=== PATIENT | female | born 1970 | race Caucasian/White ===

== ENCOUNTER 2017-12-12 10:31 | Outpatient (REF) | payer OTHER, SELFPAY ==
--- NOTE | 2017-12-12 09:15 | PAPFT_PTH ---
PATIENT: Yasemin Doherty LOC: [facility] U#:[id number] AGE/SX: 47/F ROOM: RE12/12/[address]: Jennie Tijerina NP : 1970 BED: DIS: 12/12/2017 SPEC #: [id number] RECD: 12/12/17 13:12 STATUS: KELLEY RESyeda #: [id number] NIGEL: 12/12/17 09:[address]: Jennie Tijerina NP DEPT: [facility] Cytology RECD BY: Leeanne Murillo ENTERED: 12/12/17 13:12 SP TYPE: PAPFT OTHR DR: Rosina Madera DNP Tissues: 1 - CX/ENDOCX FOR PAP SMEARS Procedures: PAP THIN PREP/[facility] Screening HPV DNA PROBE Comments: [id number]
== END 2017-12-12 10:51 ==
LOC: LBN 10:31
PROVIDERS: PCP Nurse Practitioner Gerontology; Visit Provider Nurse Practitioner Women's Health
DX: Z12.4 Encounter for screening for malignant neoplasm of cervix (principal); Z11.51 Encounter for screening for human papillomavirus (HPV)
CPT/HCPCS: 88142; 87624

== ENCOUNTER 2018-01-15 00:41 | Outpatient (CLI) | payer OTHER, SELFPAY ==
--- NOTE | 2018-01-15 15:21 | DI.MAMMO_ITS ---
SYMPTOMS/DIAGNOSIS: SCREENING, BASELINE, Z12.31 MAMMOGRAM: Mammograms were interpreted according to the usual protocol including computer analysis with CAD system, tomosynthesis and C view imaging. The breasts are heterogeneously dense. No dominant mass or clumped microcalcification is identified in either breast. Today's examination is a baseline examination. CONCLUSION: No specific evidence of malignancy at this time. Routine screening examinations are suggested at yearly intervals in this age group according to the ACS/ACR guidelines. Category 1. Breast density Category C. MQSA ASSESSMENT OF FINDINGS: Negative. Category 1. Patient will receive a letter notifying them of these results. Bi-RADS category C. The breasts are heterogeneously dense, which may obscure small masses.
== END 2018-01-15 01:01 ==
PROVIDERS: PCP Nurse Practitioner Gerontology; Visit Provider Nurse Practitioner Women's Health
DX: Z12.31 Encounter for screening mammogram for malignant neoplasm of breast (principal)
CPT/HCPCS: 77063; 77067

== ENCOUNTER 2018-04-18 15:26 | Outpatient (REF) | payer OTHER, SELFPAY ==
--- NOTE | 2018-04-18 13:40 | CER_PTH ---
PATIENT: Yasemin Doherty LOC: N U#:[id number] AGE/SX: 48/F ROOM: RE04/18/[address]: Maricarmen Bliss MD : 1970 BED: DIS: 04/18/2018 SPEC #: [id number] RECD: 04/18/18 15:34 STATUS: KELLEY REQ #: [id number] NIGEL: 04/18/18 13:[address]: Maricarmen Bliss DEPT: Surgical Specimen RECD BY: Leeanne Murillo ENTERED: 04/18/18 15:35 SP TYPE: CER OTHR DR: Rosina Madera DNP Tissues: 1 - CERVICAL LEEP/LOOP Procedures: GROSS AND MICRO LEVEL 5 Comments: [id number]
== END 2018-04-18 15:46 ==
LOC: LBN 15:26
PROVIDERS: PCP Nurse Practitioner Gerontology; Visit Provider Obstetrics & Gynecology
DX: N72 Inflammatory disease of cervix uteri (principal); R87.810 Cervical high risk human papillomavirus (HPV) DNA test positive
CPT/HCPCS: 88307

== ENCOUNTER 2018-08-19 09:10 | Day surgery (SDC) | payer OTHER, SELFPAY ==
--- NOTE | 2018-08-19 06:41 | W.COLOREPORT ---
Date of service: 08/19/18 Time of Service: 10:24 Colonoscopy Report Date of procedure: 08/19/18 Pre-op diagnosis general: Colon Cancer Screening Post-op diagnosis procedure note: other (Internal hemorrhoids) Procedure: Colonoscopy Surgeon: Sherine Rosado Anesthesia proc note operative: other (General/ ASA 2/ Saba Sharma, FLORES) Estimated blood loss (mL): 3 Pathology: none sent Complications: None Indications: Mrs. Doherty is a pleasant 48 year old female who was seen in the office for a screening colonoscopy. Risks, benefits and complications have been reviewed. Complications include but are not limited to bleeding, pain, perforation, missed small lesion/polyp, sore throat, aspiration and adverse reaction to the medications. Questions were entertained and answered to their satisfaction and they wished to proceed. No guarantees were given or implied. Prep: Miralax/Dulcolax Procedure Start Time: 10:24 Procedure End Time: 10:42 Retraction Time: 9 minutes Findings: Internal hemorrhoids and a very tortuous colon Procedure Description: After informed consent was obtained the patient was taken to the procedure room and placed in a left decubitous position. Monitors were applied and a time out was done. The patients name, date of , procedure, allergies to medications and metal in their body was reviewed. The patient was then sedated. Once sedated and comfortable a rectal exam was done. External exam was normal. Internal exam revealed a normal sphincter tone and no palpable masses. The scope was then introduced and retro-flexed. Grade 1 internal hemorrhoids were identified. The scope was then advanced to the cecum with difficulty due to a tortuous colon. The TI and appendiceal orifice were identified. The prep was adequate. The scope was then slowly retracted over 9 minutes back into the rectum. There were no polyps and no diverticulosis. The scope was removed and the patient was woken up and taken back to Same day surgery in stable condition. The patient tolerated the procedure well and there were no immediate complications. Follow up: The patient should follow up in 10 years unless they develop changes in bowel habits or other new gastrointestinal complaints.
--- NOTE | 2018-08-19 06:43 | W.PM.DSUDISC ---
Discharge Plan Disposition Patient Disposition: HOME Condition: Good Discharge Details Reason For Visit: Colon Cancer Screening Attending Provider: Sherine Rosado Primary Care Provider: Roegr Caba Home Meds and New Rx's Prescriptions: Continued multivitamin [Daily Vitamin] 1 EACH tablet 1 ea PO DAILY RF: 0 omega-3 fatty acids 1,000 mg Capsule 1,000 mg PO DAILY RF: 0 acetaminophen 500 mg Tablet 500 mg PO PRN PRNRF: 0 Discontinued polyethylene glycol 3350 17 gram/dose powder 238 g PO ONCE Qty: 238 RF: 0 bisacodyl [Dulcolax (bisacodyl)] 5 mg tablet,delayed release (DR/EC) 5 mg PO ONCE Qty: 4 RF: 0 Discharge Instructions Instructions: Colonoscopy (DC), Hemorrhoids (DC) Additional Instructions: Findings: internal hemorrhoids Follow up: 10 years Please call if you develop: fevers >101.5 Nausea or Vomiting Abdominal pain that is not transient DAY SURGERY UNIT POST COLONOSCOPY INSTRUCTIONS 1. Because there will be medication in your system for the next 24 hours, you may feel a little sleepy. Your coordination will be affected. Therefore: a. Do not drive or operate dangerous equipment for 24 hours. b. Do not drink alcohol beverages for 24 hours (not even beer). c. Plan to go home and rest for the day. 2. Generally there are no restrictions on your activity after a day or so has gone by, but you may feel a bit fatigued for a few days. 3 After you arrive home you may have a light meal and return to a normal diet as you can tolerate it without feeling sick to your stomach. 4. After surgery, you may feel pain or discomfort. This should be only transient, but if it persists please contact your doctor. 5. If there are any questions regarding the findings of your procedure, please feel free to contact your doctor. 6. If you are unable to contact your doctor with a problem, contact the hospital at [phone]. 7. Continue all your regular medications unless directed otherwise. I understand the above instructions and have no questions. Signature of Patient or Responsible Adult Escort Date/Time Name of Responsible Adult Escort Signature of Nurse Date/Time Activity:: Activity as Tolerated Diet:: As Tolerated Discharge Orders Discharge Orders: Discharge Order (Routine); Ordered 08/19/18 Ordered By: Sherine Rosado DS: Diagnosis Discharge Diagnosis (1) S/P colonoscopy: Status: Acute (2) Internal hemorrhoids: Status: Acute
[2018-08-19 09:32] VITALS: BP 109/67; PULSE 53; RESP 16; TEMP 36.8; O2SAT 99
[2018-08-19] MEDS: Lactated Ringers 1,000 ML 80 ML IV (09:45)
[2018-08-19 11:34] VITALS: BP 91/55; PULSE 49; RESP 19; TEMP 36.6; O2SAT 96
== END 2018-08-19 11:35 | disposition home or self-care (01) ==
LOC: SUR 09:10
PROVIDERS: PCP Family Medicine; Visit Provider Surgery
PROC: 0DJD8ZZ Inspection of Lower Intestinal Tract, Via Natural or Artificial Opening Endoscopic (ICD-10-PCS; CPT 45378; principal; 2018-08-19 10:00)
DX: Z12.11 Encounter for screening for malignant neoplasm of colon (principal); K63.89 Other specified diseases of intestine; K64.0 First degree hemorrhoids
CPT/HCPCS: 45378

== ENCOUNTER 2019-02-09 11:50 | Outpatient (REF) | payer OTHER, SELFPAY ==
--- NOTE | 2019-02-09 10:20 | PAPFT_PTH ---
PATIENT: Yasemin Doherty LOC: [facility] U#:[id number] AGE/SX: 48/F ROOM: RE02/09/[address]: Jennie Tijerina NP : 1970 BED: DIS: 02/09/2019 SPEC #: [id number] RECD: 02/09/19 12:49 STATUS: KELLEY REQ #: [id number] NIGEL: 02/09/19 10:[address]: Jennie Tijerina NP DEPT: [facility] Cytology RECD BY: Leeanne Murillo ENTERED: 02/09/19 12:49 SP TYPE: PAPFT OTHR DR: Roger Caba MD Tissues: 1 - CX/ENDOCX FOR PAP SMEARS Procedures: PAP THIN PREP/[facility] Screening HPV DNA PROBE Comments: [id number]
== END 2019-02-09 12:10 ==
LOC: LBN 11:50
PROVIDERS: PCP Family Medicine; Visit Provider Nurse Practitioner Women's Health
DX: Z12.4 Encounter for screening for malignant neoplasm of cervix (principal); Z11.51 Encounter for screening for human papillomavirus (HPV)
CPT/HCPCS: 88142; 87624

== ENCOUNTER 2020-05-24 10:11 | Outpatient (REF) | payer OTHER, SELFPAY ==
--- NOTE | 2020-05-24 09:20 | PAPFT_PTH ---
PATIENT: Yasemin Doherty LOC: [facility] U#:[id number] AGE/SX: 50/F ROOM: RE05/24/[address]: Jennie Tijerina NP : 1970 BED: DIS: 05/24/2020 SPEC #: [id number] RECD: 05/24/20 13:02 STATUS: KELLEY RESyeda #: [id number] NIGEL: 05/24/20 09:[address]: Jennie Tijerina NP DEPT: [facility] Cytology RECD BY: Leeanne Murillo ENTERED: 05/24/20 13:02 SP TYPE: PAPFT OTHR DR: Roger Caba MD Tissues: 1 - CX/ENDOCX FOR PAP SMEARS Procedures: PAP THIN PREP/UVM Screening HPV DNA PROBE Comments: [id number]
== END 2020-05-24 10:12 | disposition home or self-care (01) ==
LOC: LBN 10:11
PROVIDERS: PCP Family Medicine; Visit Provider Nurse Practitioner Women's Health
DX: Z12.4 Encounter for screening for malignant neoplasm of cervix (principal); Z11.51 Encounter for screening for human papillomavirus (HPV); Z87.42 Personal history of other diseases of the female genital tract
CPT/HCPCS: 88142; 87624

== ENCOUNTER 2020-05-26 02:12 | Outpatient (CLI) | payer OTHER, SELFPAY ==
--- NOTE | 2020-05-26 15:00 | DI.MAMMO_ITS ---
EXAM: MG MAMMO SCREENING CLINICAL HISTORY: screening. TECHNIQUE: Bilateral full field digital CC and MLO mammographic images were obtained with 3D tomosyn thesis and utilizing computer aided detection (CAD). COMPARISON: Prior baseline mammogram December 2017 FINDINGS: The glandular tissue is again noted be dense, this decreasing the sensitivity mammogram for finding h idden underlying lesions. No new significant radiograph findings in the right breast. In the left breast there is a group of microcalcifications which requires spot Mag views. There is no significant architectural distortion nor skin thickening-retraction. IMPRESSION: Dense bilateral fibroglandular tissue. No obvious radiographic evidence of malignancy in the right b reast . There is a microcalcification group in the left breast which requires 2D spot Mag views. BI-RADS Category 0 - Assessment Incomplete: Need additional imaging evaluation Breast Density - Category C - Heterogeneously dense Breast density Category C or D implies that the patient has dense breast tissue. Dense breast tissue can make it harder to find cancer on a mammogram. Dense breast tissue is also associated with an incr eased risk of breast cancer. This information about the result of the mammogram report was provided to the patient to raise their awareness. Use this report when you speak with the patient about their risks for breast cancer, which includes their family history. At that time, you may recommend additional screening tests (Ultrasoun d or MRI) as these tests may add significant information. A negative radiographic report should not delay biopsy if a dominant or clinically suspicious mass is present. Up to ten percent of cancers are not identified on mammography. A negative report may reinforce clinical impression. Adenosis and dense breasts may obscure an underlying neoplasm. False positive reports average 6 to 10%. Patient will receive a letter notifying them of these results.
== END 2020-05-26 02:32 ==
PROVIDERS: PCP Family Medicine; Visit Provider Nurse Practitioner Women's Health
DX: Z12.31 Encounter for screening mammogram for malignant neoplasm of breast (principal); R92.8 Other abnormal and inconclusive findings on diagnostic imaging of breast
CPT/HCPCS: 77063; 77067

== ENCOUNTER 2020-05-31 02:08 | Outpatient (CLI) | payer OTHER, SELFPAY ==
--- NOTE | 2020-05-31 | DI.US_ITS ---
EXAM: MG MAMMO SCREEN CALL BACK UNI CLINICAL HISTORY: F/U MAMMO, LT BREAST MICROCALCIFICATION GROUP TECHNIQUE: Mammograms were interpreted according to the usual protocol including computer analysis w ith CAD system, tomosynthesis and C-view imaging. COMPARISON: FINDINGS: Additional mammographic views of the left breast and left breast ultrasound are interpreted in conjun ction. These examinations were obtained to evaluate new group of microcalcifications of the left hipolito ast seen on recent mammogram. The grouping of microcalcifications in the left breast lies in approximately the 5 to 6 o'clock posit ion about 6 cm from the nipple. These consist at least 10-15 microcalcifications, most are sand like in appearance. A couple of elongated forms may be present. There is no mammographically associated mass, nor is there evidence of a breast mass in this area on the ultrasound examination. The ultras ound does show a 5 millimeter in diameter cyst with some internal echoes in this 7 o'clock position i n the breast about 3 cm from nipple. IMPRESSION: Additional mammographic views show a suspicious group of microcalcifications as described above, biop sy is recommended, biopsy may be performed using stereotactic technique due to lack of visualization on ultrasound examination. Results were communicated to Kim Tijerina NP BI-RADS Category 4 - Suspicious Abnormality: Biopsy should be considered Breast Density - Category C - Heterogeneously dense
== END 2020-05-31 02:28 ==
PROVIDERS: PCP Family Medicine; Visit Provider Nurse Practitioner Women's Health
DX: Z12.31 Encounter for screening mammogram for malignant neoplasm of breast (principal); R92.8 Other abnormal and inconclusive findings on diagnostic imaging of breast; R92.0 Mammographic microcalcification found on diagnostic imaging of breast; N60.02 Solitary cyst of left breast
CPT/HCPCS: 76642; 77063; 77067

== ENCOUNTER 2020-08-11 15:43 | Outpatient (REF) | payer OTHER, SELFPAY ==
[2020-08-11 21:15] LABS: HCT 39.7 % (36.0-46.0); HGB 13.4 g/dL (11.2-15.7); MCH 31.7 pg (27.0-33.0); MCHC 33.8 % (32.0-36.0); MCV 93.9 fL (80-95); MPV 10.3 fL (8.0-11.0); Platelet Count 217 10^3/uL (130-400); RBC 4.23 10^6/uL (3.93-5.22); RDW-SD 44.9 fL; WBC 5.15 10^3/uL (4.4-10.8)
[2020-08-11 22:07] LABS: Ferritin 92 ng/mL (8-252); TSH (W/Ref FT4) 2.13 uIU/mL (0.36-3.74)
[2020-08-12 17:59] LABS: Prolactin 7.6 ng/mL (See Table)
[2020-08-15 12:54] LABS: ANA Interpretation Negative (Negative)
[2020-08-16 21:24] LABS: 25-Hydroxy D Total 51 ng/mL; 25-Hydroxy D2 <4.0 ng/mL; 25-Hydroxy D3 51 ng/mL
== END 2020-08-11 15:44 | disposition home or self-care (01) ==
LOC: LBN 15:43
PROVIDERS: PCP Family Medicine; Visit Provider Nurse Practitioner Family
DX: L65.9 Nonscarring hair loss, unspecified (principal)
CPT/HCPCS: 82306; 85027; 82728; 84146; 84443; 86038

== ENCOUNTER 2021-05-02 14:49 | Outpatient (CLI) | payer OTHER, SELFPAY ==
--- NOTE | 2021-05-02 14:30 | DI.RAD_ITS ---
Exam(s) XR SHOULDER RT COMPLETE 2+V EXAM: XR SHOULDER RT COMPLETE 2+V CLINICAL HISTORY: RIGHT SHOULDER PAIN. TECHNIQUE: 2D digital imaging was performed. COMPARISON: CR RIGHT SHOULDER COMPLETE from 11/19/2008 FINDINGS: Two views of the right shoulder reveal no evidence of fracture nor dislocation nor obvious degenerati ve changes. No joint space narrowing. No osteophytes. Bone density normal. No osseous lesions. C oracoid process unremarkable. IMPRESSION: No significant radiographic findings. No significant change compared to 2008. DATA REPOSITORY: RADIATION DOSE DELIVERED:
== END 2021-05-02 14:50 | disposition home or self-care (01) ==
LOC: DIORS 14:49
PROVIDERS: PCP Family Medicine; Visit Provider Student in an Organized Health Care Education/Training Program
DX: M25.511 Pain in right shoulder (principal)
CPT/HCPCS: 73030

== ENCOUNTER 2021-07-03 16:03 | Outpatient (REF) | payer OTHER, SELFPAY ==
--- NOTE | 2021-07-03 15:45 | PAPFT_PTH ---
PATIENT: Yasemin Doherty LOC: [facility] U#:[id number] AGE/SX: 51/F ROOM: RE07/03/[address]: Jennie Tijerina NP : 1970 BED: DIS: 07/03/2021 SPEC #: [id number] RECD: 07/03/21 18:13 STATUS: KELLEY REQ #: [id number] NIGEL: 07/03/21 15:[address]: Lilliana CHEW,Jennie DEPT: [facility] Cytology RECD BY: Leeanne Murillo ENTERED: 07/03/21 18:13 SP TYPE: PAPFT OTHR DR: Laila Magana Tissues: 1 - CX/ENDOCX FOR PAP SMEARS Procedures: PAP THIN PREP/[facility] Screening HPV DNA PROBE Comments: [id number]
== END 2021-07-03 16:04 | disposition home or self-care (01) ==
LOC: LBN 16:03
PROVIDERS: PCP Family Medicine; Visit Provider Nurse Practitioner Women's Health
DX: Z12.4 Encounter for screening for malignant neoplasm of cervix (principal)
CPT/HCPCS: 88142; 87624

== ENCOUNTER 2023-08-28 02:22 | Outpatient (CLI) | payer OTHER, SELFPAY ==
[2023-08-28 09:18] LABS: HCT 37.7 % (36.0-46.0); HGB 13.1 g/dL (11.2-15.7); MCH 31.6 pg (27.0-33.0); MCHC 34.7 % (32.0-36.0); MCV 91 fL (80-95); MPV 9.6 fL (8.0-11.0); Platelet Count 196 10^3/uL (130-400); RBC 4.15 10^6/uL (3.93-5.22); RDW 12.9 % (11.7-14.6); RDW-SD 42.5 fL; WBC 4.25 10^3/uL (4.4-10.8)
[2023-08-28 09:48] LABS: ALT 20 U/L (14-59); AST 14 U/L (15-37); Alkaline Phosphatase 40 U/L (46-116); Anion Gap 7.4 mmol/L (3-11); BUN 27 mg/dL (7-18); Bilirubin, Total 0.48 mg/dL (0.2-1.0); CO2 28.6 mmol/L (21.0-32.0); CREATININE 1.1 mg/dL (0.55-1.02); Calcium 9.2 mg/dL (8.5-10.1); Calculated LDL 98 mg/dL (<100); Chloride 102 mmol/L (98-107); Cholesterol 170 mg/dL (<200); Estimated GFR 59.71 (mL/min/1.73m2); Glucose 111 mg/dL (74-106); HDL Cholesterol 67 mg/dL (40-60); Potassium 4.7 mmol/L (3.5-5.1); Sodium 138 mmol/L (136-145); Total Protein 7.3 g/dL (6.4-8.2); Triglyceride 27 mg/dL (<150)
== END 2023-08-28 02:23 | disposition home or self-care (01) ==
LOC: LBO 02:22
PROVIDERS: PCP Family Medicine; Visit Provider Nurse Practitioner Women's Health
DX: Z01.419 Encounter for gynecological examination (general) (routine) without abnormal findings (principal)
CPT/HCPCS: 36415; 80053; 80061; 85027

== ENCOUNTER 2024-08-06 09:27 | Outpatient (CLI) | payer OTHER, SELFPAY ==
--- NOTE | 2024-08-06 13:50 | DI.RAD_ITS ---
Exam(s) XR FINGER RT MIDDLE EXAM: XR FINGER RT MIDDLE CLINICAL HISTORY: eval fx Pain in rt finger M79.644. TECHNIQUE: 2D digital imaging was performed of the right finger. Three views were obtained. PA/AP, oblique, and lateral views were obtained. COMPARISON: CR XR HAND LT COMPLETE from 08/06/2024 FINDINGS: BONES: No acute fracture is present. No bony destructive lesion is seen. JOINTS: No dislocation present. SOFT TISSUE: Normal. IMPRESSION: No evidence of acute fracture or dislocation. DATA REPOSITORY: RADIATION DOSE DELIVERED:
--- NOTE | 2024-08-06 13:51 | DI.RAD_ITS ---
Exam(s) XR HAND LT COMPLETE EXAM: XR HAND LT COMPLETE CLINICAL HISTORY: eval fx - 1st and 2nd MCP Pain in lt hand M79.642. TECHNIQUE: 2D digital imaging was performed of the left hand. Three views were obtained. AP, lateral and oblique views were obtained. COMPARISON: No exams were available for comparison FINDINGS: BONES: There is an acute nondisplaced transverse fracture through the proximal metaphyseal region of the 1st metacarpal bone. No bony destructive lesion is seen. JOINTS: No dislocation present. SOFT TISSUE: Normal. IMPRESSION: Nondisplaced fracture through the proximal 1st metacarpal. DATA REPOSITORY: RADIATION DOSE DELIVERED:
== END 2024-08-06 09:47 ==
LOC: DI 09:27
PROVIDERS: PCP Family Medicine; Visit Provider Nurse Practitioner Family
DX: S62.245A Nondisplaced fracture of shaft of first metacarpal bone, left hand, initial encounter for closed fracture (principal); M79.644 Pain in right finger(s); X58.XXXA Exposure to other specified factors, initial encounter
CPT/HCPCS: 73130; 73140

== ENCOUNTER 2024-08-13 09:54 | Outpatient (CLI) | payer OTHER, SELFPAY ==
--- NOTE | 2024-08-13 09:00 | DI.RAD_ITS ---
Exam(s) XR THUMB LT EXAM: XR THUMB LT EXAM DATE/TIME: CLINICAL HISTORY: LEFT THUMB INJURY. TECHNIQUE: 2D digital imaging was performed of the left finger. Three views were obtained. PA/AP, oblique, and lateral views were obtained. COMPARISON: Comparison examination is 08/06/2024. FINDINGS: BONES: There has been no change in alignment of the nondisplaced fracture through the proximal 1st metacarpal. No bony destructive lesion is seen. JOINTS: No dislocation is present. SOFT TISSUE: Normal. IMPRESSION: Stable nondisplaced 1st metacarpal fracture DATA REPOSITORY: RADIATION DOSE DELIVERED:
== END 2024-08-13 09:55 | disposition home or self-care (01) ==
LOC: DIORS 09:54
PROVIDERS: PCP Family Medicine; Referring Provider Family Medicine; Visit Provider Physician Assistant
DX: M79.645 Pain in left finger(s) (principal)
CPT/HCPCS: 73140

== ENCOUNTER 2024-09-14 16:04 | Outpatient (REF) | payer OTHER, SELFPAY ==
--- NOTE | 2024-09-14 15:45 | PAPFT_PTH ---
PATIENT: Yasemin Doherty LOC: [facility] U#:[id number] AGE/SX: 54/F ROOM: RE09/14/[address]: Jennie Tijerina NP : 1970 BED: DIS: 09/14/2024 SPEC #: [id number] RECD: 09/14/24 18:09 STATUS: KELLEY REQ #: [id number] NIGEL: 09/14/24 15:[address]: Lilliana CHEW,Jennie DEPT: [facility] Cytology RECD BY: Leeanne Murillo ENTERED: 09/14/24 18:10 SP TYPE: PAPFT OTHR DR: Laila Magana Tissues: 1 - CX/ENDOCX FOR PAP SMEARS Procedures: PAP THIN PREP/UVM Screening HPV DNA PROBE Comments: [id number] (HPV 16 & 18/45)
== END 2024-09-14 16:05 | disposition home or self-care (01) ==
LOC: LBN 16:04
PROVIDERS: PCP Family Medicine; Visit Provider Nurse Practitioner Women's Health
DX: Z12.4 Encounter for screening for malignant neoplasm of cervix (principal)
CPT/HCPCS: 88142; 87624

== ENCOUNTER 2024-10-06 03:30 | Outpatient (CLI) | payer OTHER, SELFPAY ==
[2024-10-06 15:33] LABS: TSH (W/Ref FT4) 2.76 uIU/mL (0.36-3.74)
== END 2024-10-06 03:31 | disposition home or self-care (01) ==
LOC: LBO 03:30
PROVIDERS: PCP Family Medicine; Visit Provider Nurse Practitioner Women's Health
DX: R53.83 Other fatigue (principal)
CPT/HCPCS: 36415; 84443

== ENCOUNTER 2024-12-17 18:37 | Outpatient (REF) | payer OTHER, SELFPAY ==
[2024-12-17 20:29] LABS: Abs Immature Grans 0.01 10^3/uL (0.0-0.06); HCT 39.8 % (36.0-46.0); HGB 13.6 g/dL (11.2-15.7); Immature Grans % 0.2 %; MCH 31.0 pg (27.0-33.0); MCHC 34.2 % (32.0-36.0); MCV 91 fL (80-95); MPV 9.9 fL (8.0-11.0); Platelet Count 230 10^3/uL (130-400); RBC 4.39 10^6/uL (3.93-5.22); RDW 12.7 % (11.7-14.6); RDW-SD 42.3 fL; WBC 4.70 10^3/uL (4.4-10.8)
[2024-12-18 17:31] LABS: T3,Free 3.2 pg/mL (2.8-5.3)
== END 2024-12-17 18:38 | disposition home or self-care (01) ==
LOC: LBN 18:37
PROVIDERS: PCP Family Medicine; Visit Provider Physician Assistant
DX: J39.2 Other diseases of pharynx (principal)
CPT/HCPCS: 84481; 85025